=== PATIENT | female | born 1945 ===

== ENCOUNTER 2018-01-14 09:17 | Inpatient (IN) | payer OTHER ==
[~2018-01-14] VITALS: Ht 152.4 cm; Wt 64.4 kg
[2018-01-14] MEDS ORDERED: LASIX20 MG PO (09:57)
[2018-01-14] MEDS ORDERED: SYNTHROID125 MCG PO (09:57)
[2018-01-14] MEDS ORDERED: LIPITOR20 MG PO (09:58)
[2018-01-14] MEDS ORDERED: RANEXA500 MG PO (09:58)
[2018-01-14] MEDS ORDERED: GLIPIZIDE XL10 MG PO (09:58)
[2018-01-14] MEDS ORDERED: VERAPAMIL ER180 MG PO (09:58)
[2018-01-14] MEDS ORDERED: COZAAR100 MG PO (09:59)
[2018-01-14] MEDS ORDERED: PLAVIX75 MG PO (09:59)
[2018-01-14] MEDS ORDERED: MIRTAZAPINE45 M1 PO (09:59)
[2018-01-31] MEDS ORDERED: PLAVIX75 MG PO (13:35)
[2018-01-31] MEDS ORDERED: MIRTAZAPINE45 M1 PO (13:36)
[2018-01-31] MEDS ORDERED: PREDNISONE20 MG PO (13:37)
[2018-01-31] MEDS ORDERED: PERCOCET 5-3251 EACH PO (13:38)
[2018-01-31] MEDS ORDERED: SYNTHROID125 MCG PO (13:39)
[2018-01-31] MEDS ORDERED: COLACE100 MG PO (13:43)
== END 2018-01-31 14:34 | disposition home or self-care (01) | DRG 748 ==
LOC: ADM 14:00 → EDSTATUS 14:00 → ADM 01-16 10:00 → SURH 01-21 06:46 → O/R 01-21 06:46 → SURG 01-21 09:15 → SURH 01-21 13:29 → ADM 01-21 14:00 → SURG 01-21 14:00 → SURH 01-31 14:34
PROVIDERS: Surgery
PROC: 3E0T3BZ Introduction of Anesthetic Agent into Peripheral Nerves and Plexi, Percutaneous Approach (ICD-10-PCS; 2018-01-21)
PROC: 0JQC0ZZ Repair Pelvic Region Subcutaneous Tissue and Fascia, Open Approach (ICD-10-PCS; principal; 2018-01-21 09:15)
PROC: B54DZZZ Ultrasonography of Bilateral Lower Extremity Veins (ICD-10-PCS; 2018-01-24)
PROC: 4A033R1 Measurement of Arterial Saturation, Peripheral, Percutaneous Approach (ICD-10-PCS; 2018-01-26)
PROC: 3E0F7GC Introduction of Other Therapeutic Substance into Respiratory Tract, Via Natural or Artificial Opening (ICD-10-PCS; 2018-01-26)
DX: N81.6 Rectocele (principal); J45.901 Unspecified asthma with (acute) exacerbation; I10 Essential (primary) hypertension; M11.262 Other chondrocalcinosis, left knee; M11.261 Other chondrocalcinosis, right knee; E11.65 Type 2 diabetes mellitus with hyperglycemia; E03.8 Other specified hypothyroidism; M75.31 Calcific tendinitis of right shoulder; M25.561 Pain in right knee; M25.562 Pain in left knee; R60.0 Localized edema; R50.9 Fever, unspecified

== ENCOUNTER 2018-06-24 13:10 | Day surgery (SDC) | payer OTHER ==
[~2018-06-24 13:10] MED LIST: COLACE100 MG PO; COZAAR100 MG PO; GLIPIZIDE XL10 MG PO; LASIX20 MG PO; LIPITOR20 MG PO; MIRTAZAPINE45 M1 PO; PERCOCET 5-3251 EACH PO; PLAVIX75 MG PO; PREDNISONE20 MG PO; RANEXA500 MG PO; SYNTHROID125 MCG PO; VERAPAMIL ER180 MG PO
== END 2018-06-24 17:20 ==
LOC: AMB-ENDOS 13:10
DX: K62.1 Rectal polyp (principal)